=== PATIENT | male | born 1990 | race Caucasian/White ===

== ENCOUNTER 2022-10-07 12:41 | Emergency (ER) | payer BC, MEDICAID ==
[~2022-10-07] VITALS: Ht 165.1 cm; Wt 100.2 kg
[2022-10-07 13:00] VITALS: BP 127/83
--- NOTE | 2022-10-07 13:31 | NUR ---
marta wrap x 1 to r knee
[2022-10-07] MEDS ORDERED: IBUP-2213 PO (13:35)
--- NOTE | 2022-10-07 13:55 | NUR ---
Patient discharged with v/s stable. Written and verbal after care instructions ABOUT KNEE SPRAIN given and explained. Patient alert, oriented and verbalized understanding of instructions. Ambulatory with steady gait. All questions addressed prior to discharge. ID band removed. Patient advised to follow up with PMD. Rx of MOTRIN given. Patient educated on indication of medication including possible reaction and side effects. Opportunity to ask questions provided and answered.
== END 2022-10-07 13:55 | disposition home or self-care (01) ==
LOC: MED 12:41
DX: S83.91XA Sprain of unspecified site of right knee, initial encounter (principal); X58.XXXA Exposure to other specified factors, initial encounter; Y93.89 Activity, other specified; Y92.89 Other specified places as the place of occurrence of the external cause; Y99.8 Other external cause status
CPT/HCPCS: 99282